=== PATIENT | male | born 2000 | race Caucasian/White ===

== ENCOUNTER 2025-04-13 16:54 | Emergency (ER) | payer BC, SELFPAY ==
[2025-04-13 17:09] VITALS: BP 131/80; PULSE 86; RESP 14; TEMP 36.7; O2SAT 100
--- NOTE | 2025-04-13 17:57 | ED_ITS ---
HPI - URI/Sore Throat General Chief Complaint: Upper Respiratory Infection Stated Complaint: Sinus Time Seen by Provider: 04/13/25 17:20 Source: patient and RN notes reviewed Mode of arrival: ambulatory Limitations: no limitations History of Present Illness HPI Narrative: 24-year-old male presents Express Care complaining of upper respiratory infection for 2 days. Patient reports sinus congestion, nasal drainage, nonproductive cough. Denies any sore throat, chest pain, shortness of breath, ear pain, nausea, vomiting, diarrhea, or any other symptoms. Patient has tried [id number] decongestant, nasal spray, Tylenol without relief. Patient denies any significant past medical history Related Data Allergies Allergy/AdvReac Type Severity Reaction Status Date / Time No Known Allergies Allergy Verified 04/13/25 17:13 Review of Systems Review of Systems: CONSTITUTIONAL: Denies fever, chills, body aches, or sweats. EYES: Denies visual changes, redness, or discharge. ENT: Positive for congestion. Negative for rhinorrhea, sore throat, or otalgia. CARDIOVASCULAR: Denies chest pain, palpitations, or edema. RESPIRATORY: Positive for cough. Negative for dyspnea or wheezing. GASTROINTESTINAL: Denies abdominal pain, nausea, vomiting, or diarrhea. GENITOURINARY: Denies dysuria or hematuria. SKIN: Denies rash or itching. MUSCULOSKELETAL: Denies back pain, joint pain, or myalgia. NEUROLOGIC: Denies headache, numbness, or weakness. PSYCHIATRIC: Denies anxiety or depression. All other systems reviewed are negative, except as documented in HPI. PMFSH Comments At the time of my signature, I reviewed and agree with the nursing past medical, surgical, social, and family history. There is no relevant family history pertinent to the patient complaint. Exam Narrative: GENERAL: This is a well-nourished, well-developed adult, in no apparent distress. They are non ill-appearing, nontoxic appearing. HEAD: normocephalic, atraumatic. EYES: Sclera clear/white. Vision is grossly intact. Conjunctiva normal bilaterally. Extraocular movements intact. EARS: External ears normal, auditory canals clear and without drainage, TMs without erythema or perforation. Hearing grossly intact. NOSE: External nose normal with no obvious nasal discharge, nasal turbinates erythematous with rhinorrhea. THROAT: Mucous membranes moist, posterior pharynx without redness or swelling, no exudate. Uvula is midline. Postnasal drip present. NECK: Neck supple, non-tender without lymphadenopathy, masses or thyromegaly. CARDIOVASCULAR: Regular rate and rhythm without murmurs, gallops, or rubs. RESPIRATORY: Clear to auscultation. Breath sounds equal bilaterally. No wheezes, rales, or rhonchi. SKIN: warm, Dry, intact with no suspicious lesions or rash, good texture and turgor. NEURO: awake, alert, and oriented to person, place and time. There were no obvious focal neurologic abnormalities. EXTREMITIES: No joint tenderness, effusion, or edema noted. BACK: Nontender without deformity. Course Course Emergency Course: Portions of this record may have been created with voice recognition software Level of Care: Express Care Visit Vital Signs Vital signs: Vital Signs Temperature 98.1 F 04/13/25 17:09 Pulse Rate 86 04/13/25 17:09 Respiratory Rate 14 04/13/25 17:09 Blood Pressure 131/80 04/13/25 17:09 Pulse Oximetry 100 04/13/25 17:09 Oxygen Delivery Room Air 04/13/25 17:09 Temperature 98.1 F 04/13/25 17:09 Pulse Rate 86 04/13/25 17:09 Respiratory Rate 14 04/13/25 17:09 Blood Pressure 131/80 04/13/25 17:09 Pulse Oximetry 100 04/13/25 17:09 Oxygen Delivery Room Air 04/13/25 17:09 MDM - URI/Sore Throat MDM Narrative Medical decision making narrative: Patient's symptoms likely viral etiology. Will prescribe benzonatate tablets as needed for cough. Discussed physical exam findings. Advised supportive measures and signs/symptoms to go to the ER. Pt is appropriate for outpt treatment and f/u. Differential Diagnosis Differential diagnosis: Likely upper respiratory infection, sinusitis and viral infection Discharge Plan Discharge Clinical Impression: Upper respiratory infection Patient Disposition: Home Condition: Stable Instructions: Viral Syndrome (ED) Additional Instructions: Viral illness may last between 7-14 days; antibiotics do not cure viral illness and are NOT recommended at this time. Recommend antihistamine such as Benadryl at night time and Zyrtec or Klaudia during the day Take benzonatate tablets as needed for cough. You may use a Neti pot saline rinse 3 times a day with lukewarm distilled water Take mucinex 2 times per day and be sure to take with 8oz of water. You may use Afrin as needed for congestion, however do not use it longer than 3 days or it may cause rebound congestion. Also, recommend symptomatic treatment includes: rest, fluids, and increase humidity of the air at home. Recommend Acetaminophen as directed on the bottle to reduce fever, pain, headache. Please schedule a follow-up visit with your personal physician for further evaluation and treatment within 3-5days. If your symptoms persist, change or worsen significantly before you can contact your personal physician then please, without delay, go to the emergency department for further evaluation. Patient Language: Bhutanese Prescriptions: New benzonatate 100 mg capsule 100 mg PO TID PRN (Reason: cough) Qty: 20 0RF Follow-up/Referrals: PHYSICIAN,FORMWORK CARPENTER [Primary Care Provider] - Time of Disposition: 17:35
== END 2025-04-13 17:40 | disposition home or self-care (01) ==
DX: J06.9 Acute upper respiratory infection, unspecified (principal)
CPT/HCPCS: 99203; G0463

== ENCOUNTER 2025-09-01 14:32 | Emergency (ER) | payer OTHER, SELFPAY ==
--- NOTE | 2025-09-01 14:34 | ED.NAVMDI ---
HPI - Nausea/Vomiting/Diarrhea General Chief complaint: Nausea/Vomiting/Diarrhea Stated complaint: NAUSEA/VOMITING/WEAKNESS Time Seen by Provider: 09/01/25 14:34 Source: patient Mode of arrival: ambulatory Limitations: no limitations History of Present Illness HPI Narrative: Patient is a 25-year-old male who presents with concern for carbon monoxide poisoning. 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 He became dizzy and nauseated 30 minutes ago and has vomited 1 time. Since then he has felt very weak. Denies any shortness of breath, cough or wheezing. Related Data Allergies Allergy/AdvReac Type Severity Reaction Status Date / Time No Known Allergies Allergy Verified 09/01/25 14:42 Review of Systems Review of Systems: All systems reviewed & are unremarkable except as noted in HPI and below Constitutional: Constitutional: Denies body ache(s), Denies chills, Reports fatigue, Denies fever(s), Denies headache(s), Denies malaise and Denies weakness Eyes: Eyes: Denies blurry vision, Denies irritation and Denies loss of vision ENT: Denies otalgia, Denies headache(s), Denies nasal discharge, Denies sinus pain and Denies sore throat Cardiovascular: Cardiovascular: Denies chest pain, Denies irregular heart rhythm and Denies dyspnea Respiratory: Respiratory: Denies dyspnea Gastrointestinal: Gastrointestinal: Denies abdominal pain, Denies melena, Denies hematochezia, Denies diarrhea, Reports nausea and Reports vomiting Musculoskeletal: Musculoskeletal: Denies back pain, Denies myalgias and Denies arthralgias Integumentary/Breasts: Skin/Breast: Denies pruritus and Denies rash Neurologic: Reports dizziness, Denies headache(s), Denies loss of vision and Denies weakness Psychiatric: Psychiatric: Reports no additional psychiatric complaints Endocrine: Endocrine: Denies fatigue PMFSH Comments At time of signature, agree with nursing past medical, surgical, social and family history. There is no relevant family history pertinent to the presenting complaint. Exam Const: General: cooperative, healthy appearing, comfortable, no acute distress and well nourished Nutritional Appearance: well nourished Orientation/consciousness: patient oriented x3 Limitations: no limitations HENMT: Head: normal to inspection, normocephalic and atraumatic Ears: hearing grossly normal bilaterally and external ears normal Face/Nose/Sinus: Normal external nose present, normal facial exam and face symmetric Face and sinus: normal facial exam and face symmetric Mouth: Yes lip normal Eyes: General: appearance normal, both eyes and all related structures Alignment and Position: alignment normal and position normal Periorbital: periorbital findings normal Eyelids: eyelids normal Pupils: Equal, round and reactive pupils present EOM: EOMs intact bilaterally Neck: Neck: normal visual inspection, full ROM and supple Chest: Chest palpation & inspection: normal inspection of the chest Resp: Effort & Inspection: normal respiratory effort and able to speak in complete sentences Auscultation: clear to auscultation bilaterally Cardio: Rate: regular rate Rhythm: regular rhythm Heart sounds: S1 normal heart sound present and S2 normal heart sound present GI: Inspection: normal to inspection Skin: General skin exam: normal color and no rashes or lesions noted Neuro: General: patient oriented x3 and moves all extremities Cranial nerves: Yes Equal, round and reactive pupils present Speech: normal speech Gait exam (Neuro): Normal gait present Extrem: General: normal to inspection, full ROM and no edema Psych: Appearance: grossly normal and well kempt Mental Status: mental status grossly normal Speech and movement: Normal speech and movement present Affect: normal affect Attitude: cooperative Thought process: Normal thought process present Course Course Emergency Course: patient being transferred to [place] emergency department for concern for carbon monoxide poisoning. Patient will need blood work and possible oxygen therapy. Portions of this record may have been created with voice recognition software Level of Care: Express Care Visit Vital Signs Vital signs: Vital Signs Pulse Oximetry 100 09/01/25 14:40 Oxygen Delivery Room Air 09/01/25 14:40 Temperature 36.4 C 09/01/25 14:41 Pulse Rate 63 09/01/25 14:41 Respiratory Rate 16 09/01/25 14:41 Blood Pressure 124/64 09/01/25 14:41 Pulse Oximetry 100 09/01/25 14:41 Oxygen Delivery Room Air 09/01/25 14:40 Reviewed Transfer Transfered to: [facility] Transportation: Other ( Private auto) Transfer rationale: concern for carbon monoxide poisoning Accepting physician: Regla RICHARDSON MDM - Nausea/Vomiting/Diarrhea MDM Narrative Medical decision making narrative: patient being transferred to [place] emergency department for concern for carbon monoxide poisoning. Patient will need blood work and possible oxygen therapy. Differential Diagnosis Differential diagnosis: Likely dehydration and other ( Carbon monoxide poisoning) Medical Records Attestation: I reviewed the patient's medical records. Discharge Plan Discharge Clinical Impression: Carbon monoxide exposure, Dizziness Patient Disposition: Acute Care Hospital Condition: Stable Patient Language: Belarusian Prescriptions: No Action benzonatate 100 mg capsule 100 mg PO TID PRN (Reason: cough) Qty: 20 0RF Follow-up/Referrals: PHYSICIAN,TRESTLEMAN [Primary Care Provider, Internal Medicine] Time of Disposition: 15:00
[2025-09-01 14:40] VITALS: O2SAT 100
[2025-09-01 14:41] VITALS: BP 124/64; PULSE 63; RESP 16; TEMP 36.4; O2SAT 100
== END 2025-09-01 14:57 | disposition short-term general hospital (02) ==
PROVIDERS: Emergency Provider Nurse Practitioner Family
DX: T58.91XA Toxic effect of carbon monoxide from unspecified source, accidental (unintentional), initial encounter (principal); R42 Dizziness and giddiness
CPT/HCPCS: 99212; G0463

== ENCOUNTER 2025-09-01 15:17 | Emergency (ER) | payer OTHER, SELFPAY ==
[2025-09-01] VITALS (7 sets, daily range): BP systolic 116–155; BP diastolic 52–55; PULSE 66–81; RESP 12–18; TEMP 36.4; O2SAT 95–100
--- OUTSIDE RECORDS SUMMARY | 2025-09-01 15:20 | XMS_ITS | Clinical Summary ---
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 Gender Identity Not on file Sexual Orientation Not on file Plan of Treatment Health Maintenance Due Date Last Done Comments Hepatitis C Virus (HCV) Screening 1999 TdaP Immunization 1999 Human Papillomavirus (HPV) Immunization (1 - Male 3-dose series) 2014 Hepatitis B Immunization (1 of 3 - 19+ 3-dose series) 2018 Influenza Immunization (#1) 2025 SARS-COV-2 Immunization ( - 2023- season) 2025 Respiratory Syncytial Virus (RSV) Immunization (Adult) (1 - 1-dose 75+ series) 2074 Meningococcal Immunization (ACWY) Completed 016 Pneumococcal Immunization Combined Aged Out No longer eligible based on patient's age to complete this topic Rotavirus Immunization Aged Out No lo nger eligible based on patient's age to complete this topic
--- NOTE | 2025-09-01 16:49 | ED_ITS ---
HPI - General Adult General Chief complaint: Unspecified <UNA Alston Last Filed: 09/01/25 17:06> Stated complaint: carbon monoxide poisoning <UNA Alston Last Filed: 09/01/25 17:06> Time Seen by Provider: 09/01/25 16:49 <UNA Alston Last Filed: 09/01/25 17:06> Focused HPI: Patient is a 25 y/o male who presents to the ED with concern for CO exposure. 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 States he was working in this area for 1-1.5 hours. Began feeling ill afterwards and as though he needed to go outside for fresh air. C/o dizziness/lightheadedness, N/V, BOLES. Denies vision changes. Denies SOB. GENERAL: Mildly ill-appearing, well-nourished, and in no acute distress. HEAD: Normocephalic, atraumatic. CHEST: Clear to auscultation. ?No respiratory distress. HEART: Regular rate and rhythm.? NEURO: ?Alert and oriented x3. Patient screened in triage and initial orders placed.? ?Additional care and disposition to be based upon?diagnostic testing and treatment. <Maria Del Rosario Cook PA-C - Last Filed: 09/01/25 17:06> Source: patient <UNA Alston Last Filed: 09/01/25 17:06> Mode of arrival: ambulatory <UNA Alston Last Filed: 09/01/25 17:06> Limitations: no limitations <UNA Alston Last Filed: 09/01/25 17:06> History of Present Illness HPI narrative: Agree with the above with the following additions/corrections: Source: Also includes Katherine SHEETS from [facility] urgent care who called with provider report at 2:52pm and noted that this patient would be presenting with concern for carbon monoxide poisoning as he had been working on a trach system and then felt dizzy nauseated and vomited x1 as well as feeling weak. He nurse practitioner had called poison Control recommended patient present to the emergency department ; he had been saturating 100% on room air. Presented by private vehicle with who drove. 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 Not a smoker at baseline. [place] fatigued dizzy and nauseated but not currently. In the space for 1-1.5 hours and has photos of the concerning areas. Symptoms have resolved. No complaints although reportedly had been hyperventilating at the time of ABG. 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 <Maria Del Rosario Cook PA-C - Last Filed: 09/01/25 17:06> Exam Const: General: cooperative, healthy appearing, comfortable, no acute dis tress, well developed, alert, awake and Physically active; No acute distress, combative, confusion or diaphoretic <Wandy Arauz MD - Last Filed: 09/04/25 08:30> Nutritional Appearance: average body habitus <Wandy Arauz MD - Last Filed: 09/04/25 08:30> Orientation/consciousness: oriented to person, oriented to place and oriented to time <Wandy Arauz MD - Last Filed: 09/04/25 08:30> Limitations: no limitations <Wandy Arauz MD - Last Filed: 09/04/25 08:30> HENMT: Head: normal to inspection and normocephalic <Wandy Arauz MD - Last Filed: 09/04/25 08:30> Ears: hearing grossly normal bilaterally <Wandy Arauz MD - Last Filed: 09/04/25 08:30> Face/Nose/Sinus: Normal external nose present <Wandy Arauz MD - Last Filed: 09/04/25 08:30> Face and sinus: normal facial exam <Wandy Arauz MD - Last Filed: 09/04/25 08:30> Eyes: Other: keeps sunglasses on during entirety of interaction, unable to comment <Wandy Arauz MD - Last Filed: 09/04/25 08:30> Neck: Neck: normal visual inspection and no meningeal signs <Wandy Arauz MD - Last Filed: 09/04/25 08:30> Resp: Effort & Inspection: normal respiratory effort, able to speak in complete sentences, no audible wheezes, no cough, no grunting, no pursed lip breathing, no respiratory distress, no retractions, no stridor, not tachypneic, no tripod positioning and no use of accessory muscles <Wandy Arauz MD - Last Filed: 09/04/25 08:30> Cardio: Rate: regular rate, not bradycardic and not tachycardic <Wandy Arauz MD - Last Filed: 09/04/25 08:30> GI: Inspection: no obesity <MD Ana Rosa Thomas Last Filed: 09/04/25 08:30> Skin: General skin exam: normal color and no rashes or lesions noted <MD Ana Rosa Thomas Last Filed: 09/04/25 08:30> Other: no lesions on exposed skin which is not koehler red <Wandy Arauz MD - Last Filed: 09/04/25 08:30> Neuro: General: moves all extremities <MD Ana Rosa Thomas Last Filed: 09/04/25 08:30> Cognition (Neuro): normal cognition <MD Ana Rosa Thomas Last Filed: 09/04/25 08:30> Speech: normal speech, No dysarthria and No aphasia <MD Ana Rosa Thomas Last Filed: 09/04/25 08:30> Extrem: General: normal to inspection <MD Ana Rosa Thomas Last Filed: 09/04/25 08:30> Psych: Mental Status: mental status grossly normal <Wandy Arauz MD - Last Filed: 09/04/25 08:30> Speech and movement: Normal speech and movement present <Wandy Arauz MD - Last Filed: 09/04/25 08:30> Affect: normal affect <Wandy Arauz MD - Last Filed: 09/04/25 08:30> Attitude: cooperative <Wandy Arauz MD - Last Filed: 09/04/25 08:30> Thought process: Normal thought process present <Wandy Arauz MD - Last Filed: 09/04/25 08:30> Thought content: Yes Normal thought content present <Wandy Arauz MD - Last Filed: 09/04/25 08:30> Insight: Good insight present (Psych) <Wandy Arauz MD - Last Filed: 09/04/25 08:30> Judgement: Good judgement present (Psych) <Wandy Arauz MD - Last Filed: 09/04/25 08:30> Course Vital Signs Vital signs: Vital Signs Temperature 97.6 F 09/01/25 15:24 Pulse Rate 70 09/01/25 15:24 Respiratory Rate 16 09/01/25 15:24 Blood Pressure 155/55 H 09/01/25 15:24 Pulse Oximetry 100 09/01/25 15:24 Temperature 97.6 F 09/01/25 15:24 Pulse Rate 72 09/01/25 17:46 Respiratory Rate 14 09/01/25 17:45 Blood Pressure 116/52 L 09/01/25 17:59 Pulse Oximetry 96 09/01/25 17:45 <Maria Del Rosario Cook PA-C - Last Filed: 09/01/25 17:06> Vital Signs Temperature 97.6 F 09/01/25 15:24 Pulse Rate 70 09/01/25 15:24 Respiratory Rate 16 09/01/25 15:24 Blood Pressure 155/55 H 09/01/25 15:24 Pulse Oximetry 100 09/01/25 15:24 Temperature 97.6 F 09/01/25 15:24 Pulse Rate 72 09/01/25 17:46 Respiratory Rate 14 09/01/25 17:45 Blood Pressure 116/52 L 09/01/25 17:59 Pulse Oximetry 96 09/01/25 17:45 <Wandy Arauz MD - Last Filed: 09/04/25 08:30> Medical Decision Making MDM Narrative Medical decision making narrative: MSE by GINNY in triage. <Maria Del Rosario Cook PA-C - Last Filed: 09/01/25 17:06> MSE by GINNY in triage. Patient presents from urgent care with concern for CO poisoning. 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 In the ED he is afebrile with VS notable for elevated SBP and slightly low DBP but MAP 88mmHg. All symptoms had resolved. Carboxyhemoglobin <1%. Stable for discharged. Encouraegd to continue to keep high index of suspicion necessary in his line of work. Work note provided. Provided the name/contact infor for a PCP if needed. <Wandy Arauz MD - Last Filed: 09/04/25 08:30> Differential Diagnosis Differential Diagnosis: carbon monoxide poisoning/toxicity; also considered other exposures but no fire/flame - no other smoke inhalation; no reason to suspect cyanide poisoning <Wandy Arauz MD - Last Filed: 09/04/25 08:30> Vital Signs Vital Signs: Vital Signs Temperature 97.6 F 09/01/25 15:24 Pulse Rate 70 09/01/25 15:24 Respiratory Rate 16 09/01/25 15:24 Blood Pressure 155/55 H 09/01/25 15:24 Pulse Oximetry 100 09/01/25 15:24 Temperature 97.6 F 09/01/25 15:24 Pulse Rate 72 09/01/25 17:46 Respiratory Rate 14 09/01/25 17:45 Blood Pressure 116/52 L 09/01/25 17:59 Pulse Oximetry 96 09/01/25 17:45 <Maria Del Rosario Cook PA-C - Last Filed: 09/01/25 17:06> Vital Signs Temperature 97.6 F 09/01/25 15:24 Pulse Rate 70 09/01/25 15:24 Respiratory Rate 16 09/01/25 15:24 Blood Pressure 155/55 H 09/01/25 15:24 Pulse Oximetry 100 09/01/25 15:24 Temperature 97.6 F 09/01/25 15:24 Pulse Rate 72 09/01/25 17:46 Respiratory Rate 14 09/01/25 17:45 Blood Pressure 116/52 L 09/01/25 17:59 Pulse Oximetry 96 09/01/25 17:45 <Wandy Arauz MD - Last Filed: 09/04/25 08:30> Lab Data Lab results reviewed: Yes I reviewed the patient's lab results. <Wandy Arauz MD - Last Filed: 09/04/25 08:30> Labs: Lab Results 09/01/25 Range/Units 17:09 Methemoglobin 0.3 (0-1.5) %THb <Maria Del Rosario Cook PA-C - Last Filed: 09/01/25 17:06> Lab Results 09/01/25 Range/Units 17:09 Methemoglobin 0.3 (0-1.5) %THb <Wandy Arauz MD - Last Filed: 09/04/25 08:30> ABG Data ABG results: 09/01/25 17:09 Puncture Site Left brachial ABG pH 7.530 H* ABG pCO2 26.6 L ABG pO2 127.6 H ABG PO2/FiO2 Ratio 6.08 ABG HCO3 21.7 L ABG O2 Saturation 98.9 ABG O2 Content 21.7 ABG Base Excess 0.6 A-a Gradient < 0.0 Oxyhemoglobin 98.1 Carboxyhemoglobin 0.5 Reduced Hemoglobin 1.1 Total Hemoglobin 15.6 O2 Delivery Device Room air O2 Liters/Min 0.0 FiO2 21 <Maria Del Rosario Cook PA-C - Last Filed: 09/01/25 17:06> 09/01/25 17:09 Puncture Site Left brachial ABG pH 7.530 H* ABG pCO2 26.6 L ABG pO2 127.6 H ABG PO2/FiO2 Ratio 6.08 ABG HCO3 21.7 L ABG O2 Saturation 98.9 ABG O2 Content 21.7 ABG Base Excess 0.6 A-a Gradient < 0.0 Oxyhemoglobin 98.1 Carboxyhemoglobin 0.5 Reduced Hemoglobin 1.1 Total Hemoglobin 15.6 O2 Delivery Device Room air O2 Liters/Min 0.0 FiO2 21 <Wandy Arauz MD - Last Filed: 09/04/25 08:30> Discharge Plan Discharge Clinical Impression: Carbon monoxide exposure <Maria Del Rosario Cook PA-C - Last Filed: 09/01/25 17:06> Patient Disposition: Home <Maria Del Rosario Cook PA-C - Last Filed: 09/01/25 17:06> Condition: Stable <UNA Alston Last Filed: 09/01/25 17:06> Instructions: Antibiotic Form, Carbon Monoxide Poisoning (ED) <UNA Alston Last Filed: 09/01/25 17:06> Additional Instructions: I am reassured your symptoms have resolved and your carboxyhemoglobin level was normal. Continue to maintain a high index of suspicion free these occurrences. If you need a primary care physician for any follow-up or other needs, the name of doctors listed below. Return to the emergency department any new or worsening symptoms. <UNA Alston Last Filed: 09/01/25 17:06> Patient Language: Colombian <Maria Del Rosario Cook PA-C - Last Filed: 09/01/25 17:06> Prescriptions: No Action benzonatate 100 mg capsule 100 mg PO TID PRN (Reason: cough) Qty: 20 0RF <UNA Alston Last Filed: 09/01/25 17:06> Follow-up/Referrals: José Miguel Walker MD [Physician, Family Practice] PHYSICIAN,INFLATABLE BUILDINGS LAMINATOR [Primary Care Provider, Internal Medicine] <UNA Alston Last Filed: 09/01/25 17:06> Stand Alone Forms: Work/School Release IP <UNA Alston Last Filed: 09/01/25 17:06> Time of Disposition: 18:19 <UNA Alston Last Filed: 09/01/25 17:06> 18:19 <Wandy Arauz MD - Last Filed: 09/04/25 08:30>
[2025-09-01] MEDS: ONDANSETRON HCL ODT 4 MG TABLET PO (17:01)
[2025-09-01 17:16] LABS: Alveolar/Arterial O2 Gradient < 0.0 mmHg; Carboxyhemoglobin 0.5 % THb (0-2.0); Fractional Inspired Oxygen 21 %; HCO3 ABG 21.7 mEq/l (22.0-26.0); Methemoglobin ABG 0.3 %THb (0-1.5); Oxygen Content ABG 21.7 %vol (16.0-22.0); Oxygen Saturation ABG 98.9 % (95.0-100.0); PCO2 ABG 26.6 mmHg (35.0-45.0); PO2 ABG 127.6 mmHg (80.0-100.0); PO2 FiO2 Ratio Arterial Blood 6.08 %; Reduced Hemoglobin 1.1 %THb (0-5.0)
[2025-09-01 17:21] LABS: Liters per Minute 0.0 LPM; Site Drawn LEFT BRACHIAL
== END 2025-09-01 18:24 | disposition home or self-care (01) ==
PROVIDERS: Physician Assistant; Emergency Provider Student in an Organized Health Care Education/Training Program
DX: Z57.5 Occupational exposure to toxic agents in other industries (principal)
CPT/HCPCS: 36600; 82375; 82805; 83050; 85018; 99284; A9270